=== PATIENT | female | born 1995 | race African-American/Black ===

== ENCOUNTER → 2016-07-24 | Outpatient (CLI) | payer OTHER ==
[2016-07-24 13:35] LABS: BASO % 0.5 % (0.0-1.0); EOS # 0.1 K/mm3 (0.0-0.50); EOS % 1.3 % (0.0-3.0); LARGE UNSTAINED CELL # 0.1 K/mm3 (0.0-0.4); LARGE UNSTAINED CELL % 1.5 % (0.0-4.0); LYMPH # 1.5 K/mm3 (1.5-6.5); LYMPH % 30.5 % (24.0-44.0); MEAN CORPUSCULAR HEMOGLOBIN 23.4 pg (27.0-33.0); MEAN CORPUSCULAR HGB CONC 30.9 g/dl (32.0-36.5); MEAN CORPUSCULAR VOLUME 75.8 fl (80.0-96.0); MONO # 0.3 K/mm3 (0.0-0.8); MONO % 6.1 % (0.0-5.0); NEUTROPHILS # 2.9 K/mm3 (1.8-7.7); NEUTROPHILS % 60.1 % (36.0-66.0); PLATELET COUNT, AUTOMATED 241 k/mm3 (150-450); RED CELL DISTRIBUTION WIDTH 14.3 % (11.5-14.5); WHITE BLOOD COUNT 4.9 K/mm3 (4.0-10.0)
[2016-07-24 14:10] LABS: HEPATITIS B SURFACE ANTIBODY POSITIVE (POSITIVE)
[2016-07-25 15:23] LABS: CONTROL LINE INT CTR LINE PRESENT; HIV SCRN NEGATIVE (NEGATIVE); HIV SCRN1 NEGATIVE (NEGATIVE)
== END ==
LOC: M WUC 11:06
PROVIDERS: ATTEND Nurse Practitioner Family
DX: Z11.59 Encounter for screening for other viral diseases (principal); Z11.4 Encounter for screening for human immunodeficiency virus [HIV]; D64.9 Anemia, unspecified; Z78.9 Other specified health status

== ENCOUNTER 2018-09-03 16:50 | Emergency (ER) | payer OTHER, SELFPAY ==
[~2018-09-03] VITALS: Ht 160 cm; Wt 55.9 kg
[2018-09-03 16:50] VITALS: BP 139/87
[2018-09-03] MEDS ORDERED: KETO10TAB PO (16:57)
== END 2018-09-03 21:17 | disposition left against medical advice (07) ==
LOC: M ED 16:50
DX: Z53.21 Procedure and treatment not carried out due to patient leaving prior to being seen by health care provider (principal)

== ENCOUNTER → 2018-10-19 | Outpatient (REF) | payer OTHER ==
[~2018-10-19] MED LIST: KETO10TAB PO
[2018-10-19 13:40] LABS: BASO % 0.4 % (0.0-1.0); EOS # 0.1 10^3/uL (0.0-0.50); EOS % 1.1 % (0.0-3.0); HEMATOCRIT 43.3 % (36.0-47.0); HEMOGLOBIN 14.5 g/dl (12.0-15.5); LYMPH # 1.6 10^3/uL (1.5-6.5); MEAN CORPUSCULAR HEMOGLOBIN 27.7 pg (27.0-33.0); MEAN CORPUSCULAR HGB CONC 33.5 g/dl (32.0-36.5); MEAN CORPUSCULAR VOLUME 82.8 fl (80.0-96.0); MONO # 0.4 10^3/uL (0.0-0.8); MONO % 9.4 % (0.0-5.0); NEUTROPHILS # 2.4 10^3/uL (1.8-7.7); NEUTROPHILS % 53.9 % (36.0-66.0); PLATELET COUNT, AUTOMATED 197 10^3/uL (150-450); RED BLOOD COUNT 5.23 10^6/uL (4.00-5.40); WHITE BLOOD COUNT 4.5 10^3/uL (4.0-10.0)
[2018-10-19 13:52] LABS: ALBUMIN 4.1 GM/DL (3.2-5.2); ALT/SGPT 27 U/L (12-78); BILIRUBIN,TOTAL 0.8 MG/DL (0.2-1.0); BLOOD UREA NITROGEN 9 MG/DL (7-18); CARBON DIOXIDE LEVEL 25 MEQ/L (21-32); CHLORIDE LEVEL 107 MEQ/L (98-107); CREATININE FOR GFR 0.53 MG/DL (0.55-1.30); GLOMERULAR FILTRATION RATE > 60.0 (>60); GLUCOSE, FASTING 74 MG/DL (70-100); POTASSIUM SERUM 4.2 MEQ/L (3.5-5.1); RHEUMATOID FACTOR QUANT < 10.0 IU/ML (<15.0); SODIUM LEVEL 137 MEQ/L (136-145); TOTAL 25(OH) VITAMIN D 23.5 NG/ML (30.0-100.0); TOTAL PROTEIN 7.3 GM/DL (6.4-8.2)
[2018-10-19 14:15] LABS: ERYTHROCYTE SEDIMENTATION RATE 4 mm/hr (0-20)
[2018-10-20 15:03] LABS: ANTINUCLEAR ANTIBODIES DIRECT Negative (Negative)
== END ==
LOC: M LABNEURO 08:39
PROVIDERS: ATTEND Psychiatry & Neurology Neurology
DX: R51 Headache (principal)

== ENCOUNTER → 2019-02-09 | Outpatient (CLI) | payer OTHER ==
--- NOTE | 2019-02-09 15:06 | REP ---
CT HEAD WITHOUT CONTRAST: HISTORY: Sinus congestion. There is no intraparenchymal hemorrhage, mass or midline shift. The ventricular system is normal in appearance. There is no extracerebral collection. The visualized sinuses are clear. IMPRESSION: There is no intracranial lesion. Electronically Signed by Jose F Cooper MD 02/09/2019 03:07 P
== END ==
LOC: M RAD 14:09
PROVIDERS: ATTEND Psychiatry & Neurology Neurology
DX: R09.81 Nasal congestion (principal)

== ENCOUNTER → 2019-03-11 | Outpatient (CLI) | payer OTHER | LOC: M WUC 17:11 | PROVIDERS: ATTEND Physician Assistant | DX: Z02.0 Encounter for examination for admission to educational institution (principal) ==

== ENCOUNTER → 2020-04-09 | Outpatient (REF) | payer OTHER | LOC: M LAB REF 12:59 | PROVIDERS: ATTEND Nurse Practitioner Family | DX: R30.0 Dysuria (principal) ==

== ENCOUNTER → 2020-06-18 | Outpatient (REF) | payer OTHER | LOC: M WUC 09:27 | PROVIDERS: ATTEND Physician Assistant | DX: N39.0 Urinary tract infection, site not specified (principal) ==